=== PATIENT | male | born 1990 | race Caucasian/White ===

== ENCOUNTER 2024-04-30 09:10 | Emergency (ER) | payer BC ==
[~2024-04-30] VITALS: Ht 188 cm; Wt 81.8 kg
[2024-04-30 09:18] VITALS: TEMP 97.2
[2024-04-30] MEDS: MORPHINE SULFATE 4 MG/ML SYRINGE IVP ONE (09:28)
[2024-04-30] MEDS: ONDANSETRON HCL 4 MG/2 ML VIAL IVP ONE (09:28)
[2024-04-30] MEDS: KETOROLAC TROMETHAMINE 30 MG/ML VIAL IVP ONE (09:28)
[2024-04-30] MEDS: SODIUM CHLORIDE 0.9% 1,000 ML IV ONE ×2 (09:28→10:51)
[2024-04-30] MEDS: HYDROmorphone HCL 2 MG/ML SYRINGE IVP ONE (09:49)
[2024-04-30 09:59] LABS: BASOPHILS % (AUTO) 0.7 % (0.0-2.0); EOSINOPHILS % (AUTO) 1.2 % (1.0-6.0); HEMATOCRIT 46.7 % (41-53); HEMOGLOBIN 15.9 g/dL (13.5-17.5); LYMPHOCYTES # (AUTO) 2.7 K/uL (1.0-4.8); LYMPHOCYTES % (AUTO) 43.5 % (22.0-44.0); MEAN CORPUSCULAR HEMOGLOBIN 31.2 pg (26.0-34.0); MEAN CORPUSCULAR VOLUME 92 fL (80-100); MONOCYTES # (AUTO) 0.5 K/uL (0.1-1.0); MONOCYTES % (AUTO) 8.7 % (2.0-9.0); NEUTROPHILS # (AUTO) 2.8 K/uL (1.8-7.7); NEUTROPHILS % (AUTO) 45.9 % (40.0-70.0); PLATELET COUNT (AUTO) 204 K/uL (150-450); RED CELL DISTRIBUTION WIDTH 13.7 % (11.5-14.5); WHITE BLOOD COUNT (AUTO) 6.2 K/uL (4.5-11.0)
[2024-04-30 10:09] LABS: CALCIUM, TOTAL 9.3 mg/dL (8.8-10.5); CREATININE 1.78 mg/dL (0.60-1.30); POTASSIUM 3.6 mmol/L (3.5-5.1)
[2024-04-30 11:38] LABS: APPEARANCE,URINE CLEAR (CLEAR); BILIRUBIN,URINE NEGATIVE (NEGATIVE); COLOR,URINE YELLOW (YELLOW); GLUCOSE, URINE (UA) NEGATIVE (NEGATIVE); LEUKOCYTE ESTERASE ,URINE NEGATIVE (NEGATIVE); NITRATE,URINE NEGATIVE (NEGATIVE); OCCULT BLOOD,URINE LARGE (NEGATIVE); PH,URINE 6.5 (5.0-8.0); PROTEIN,URINE TRACE mg/dL (NEGATIVE); SPECIFIC GRAVITIY, URINE 1.026 (1.003-1.030); UROBILINOGEN,URINE <=1.0 mg/dL (<=1.0)
[2024-04-30 12:16] LABS: BACTERIA,URINE Few /HPF (None Seen); WBC,URINE 0-2 /HPF (0-5)
[2024-04-30 13:24] VITALS: BP 139/73; PULSE 64; RESP 15; O2SAT 100
[2024-04-30] MEDS ORDERED: ONDA-104 PO (13:39)
[2024-04-30] MEDS ORDERED: TAMS0.4C94 PO (13:39)
[2024-04-30] MEDS ORDERED: IBUP-1554 PO (13:39)
[2024-04-30] MEDS ORDERED: HYDR-4072 PO (13:39)
[2024-04-30] MEDS ORDERED: POLY119P3 PO (13:39)
== END 2024-04-30 14:32 | disposition home or self-care (01) ==
LOC: EMS 09:10
DX: N20.9 Urinary calculus, unspecified (principal)
CPT/HCPCS: 99285; 74176; 96374; 96375; 96361; 80048; 81001; 83690; 85025; 36415; J1170; J1885; J2270; J2405; J7030